=== PATIENT | female | born 1945 | race Caucasian/White ===

== ENCOUNTER 2020-09-29 08:10 | Day surgery (SDC) | payer MEDICARE, OTHER ==
[~2020-09-29 08:10] MED LIST: Lactated Ringers 1,000 ML IV SCH
[2020-09-29] MEDS ORDERED: Propofol 200 MG/20 ML SDV ONE (08:57)
[2020-09-29] MEDS ORDERED: fentaNYL 100 MCG/2 ML SDV ONE (08:57)
[2020-09-29] MEDS ORDERED: ePHEDrine 50 MG/ML SDV ONE (10:31)
[2020-09-29 11:08] VITALS: BP 133/54; PULSE 86
--- NOTE | 2020-09-29 14:02 | OR ---
DATE OF SURGERY: 09/29/2020. REFERRING PROVIDER: Stephanie Sales PA-C PRE-OPERATIVE DIAGNOSIS: History of bloody stool. Last colonoscopy was normal 10 years ago. There is no family history of colon cancer. POST-OPERATIVE DIAGNOSES: 1. A single 2 mm polyp at 125 cm, removed using cold forceps. 2. Moderate hemorrhoids, not acutely inflamed. PROCEDURE: Colonoscopy with polypectomy x1 using cold forceps. SURGEON: Eliel Carney M.D. ANESTHESIA: Monitored anesthesia care. BOWEL PREP: Good. Estephanie is a 74-year-old female who was brought to the endoscopy suite after discussing risks and benefits of the procedure. Informed consent was obtained for conscious sedation and colonoscopy with or without biopsy and/or polypectomy. We also discussed possibility of missed lesions. Pre-procedure exam was unremarkable. IV, oxygen, and monitors were placed. The patient was placed in the left lateral decubitus position. Sedation was administered and a digital rectal exam was performed and was remarkable for some moderate external hemorrhoids, not acutely inflamed. Colonoscope was passed into the rectum and slowly advanced all the way to the cecum. Cecum was viewed and photographed. The colonoscope was slowly withdrawn and the mucosa was closed observed in a direct circumferential manner. The ascending colon was remarkable for 2 mm polyp at 125 cm, removed using cold forceps. The transverse colon was unremarkable. The descending colon was unremarkable. The sigmoid colon was unremarkable. Retroflexion was performed and rectal mucosa revealed some moderate hemorrhoids, not acutely inflamed. Scope was removed. The patient tolerated the procedure well. The patient was monitored until that baseline status. Discharge instructions were reviewed and the patient was discharged in good condition. COMPLICATIONS: None. TOTAL TIME: 20 minutes. ESTIMATED BLOOD LOSS: Less than 1 mL. RECOMMENDATIONS/FOLLOW-UP: We will await results of path report and send letter with results. The patient can likely be done with screening colonoscopies given her age. I would like to kindly thank Stephanie Sales for this referral. DMB: 09/29/2020 12:14:01 MODL: 09/29/2020 12:47:00 /[id number]
== END 2020-09-29 12:05 | disposition home or self-care (01) ==
LOC: VM.SDS 08:10
PROVIDERS: ATTEND Family Medicine
DX: Z12.11 Encounter for screening for malignant neoplasm of colon (principal); K64.4 Residual hemorrhoidal skin tags; D12.2 Benign neoplasm of ascending colon; G47.33 Obstructive sleep apnea (adult) (pediatric); E03.9 Hypothyroidism, unspecified; E66.9 Obesity, unspecified; K21.9 Gastro-esophageal reflux disease without esophagitis; E78.5 Hyperlipidemia, unspecified; Z98.890 Other specified postprocedural states; Z79.899 Other long term (current) drug therapy; Z68.32 Body mass index [BMI] 32.0-32.9, adult
CPT/HCPCS: 00811; 45380; J2704; J3010; J7120; 88305